=== PATIENT | female | born 2000 ===

== ENCOUNTER 2019-02-12 21:32 | Emergency (ER) | payer SELFPAY ==
[2019-02-12 22:03] VITALS: BP 139/76
--- NOTE | 2019-02-12 22:08 | UC ---
Lower Extremity/Ankle HPI - History of Current Complaint Chief Complaint: UCLowerExtremity Stated Complaint: R FOOT INJURY Hx Obtained From: Patient Hx Last Menstrual Period: 02/08/2019 ?: No Onset/Duration: Sudden Onset, Lasting Hours Severity Initially: Moderate Severity Currently: Moderate Pain Intensity: 6 Aggravating Factor(s): Standing, Ambulation Alleviating Factor(s): Nothing Able to Bear Weight: No - Allergies/Home Medications Allergies/Adverse Reactions: Allergies Allergy/AdvReac Type Severity Reaction Status Date / Time amoxicillin Allergy Hives Verified 02/12/19 22:06 latex Allergy Rash And Verified 02/12/19 22:07 Itching Home Medications: Home Medications Ibuprofen 600 mg PO 02/12/19 [History] PMH/Surg Hx/FS Hx/Imm Hx Previously Healthy: Yes - Surgical History Surgical History: Yes Surgery Procedure, Year, and Place: broken collar bone with plate and screws put in 2016 - Family History Known Family History: Negative: Cardiac Disease, Hypertension - Social History Alcohol Use: None Substance Use Type: None Smoking Status (MU): Never Smoked Tobacco Review of Systems All Other Systems Reviewed And Are Negative: Yes Constitutional: Positive: Negative Skin: Positive: Bruising Eyes: Positive: Negative ENT: Positive: Negative Respiratory: Positive: Negative Cardiovascular: Positive: Negative Gastrointestinal: Positive: Negative Genitourinary: Positive: Negative Motor: Positive: Negative Neurovascular: Positive: Negative Musculoskeletal: Positive: Arthralgia, Decreased ROM, Edema, Myalgia Neurological: Positive: Negative Psychological: Positive: Negative Is Patient Immunocompromised?: No Physical Exam Triage Information Reviewed: Yes Appearance: Well-Appearing, Well-Nourished, Pain Distress Vital Signs: Initial Vital Signs Temp 100.2 F 02/12/19 21:57 Pulse 100 02/12/19 21:57 Resp 16 02/12/19 21:57 BP 139/76 02/12/19 21:57 Pulse Ox 100 02/12/19 21:57 Vital Signs Reviewed: Yes Eye Exam: Normal ENT Exam: Normal Dental Exam: Normal Neck exam: Normal Respiratory Exam: Normal Respiratory: Positive: Chest non-tender, Lungs clear Cardiovascular Exam: Normal Cardiovascular: Positive: RRR, No Murmur, Pulses Normal Abdominal Exam: Normal Abdomen Description: Positive: Nontender, No Organomegaly, Soft Musculoskeletal: Positive: Strength Limited @ - cannot bear weight,, ROM Limited @ - due to pain, la, Edema @ - large amount of edema over the top of the mid foot, bruised, Neurological Exam: Normal Psychological Exam: Normal Skin Exam: Normal Lower Extremity Course/Dx - Course Course Of Treatment: hx obtained, exam performed ,meds reviewed, xray obtained. - Differential Dx/Diagnosis Differential Diagnosis/HQI/PQRI: Contusion, Dislocation, Fracture (Closed), Sprain, Strain Provider Diagnosis: Sprain of foot, left Discharge - Sign-Out/Discharge Documenting (check all that apply): Patient Departure All imaging exams completed and their final reports reviewed: No Studies - Discharge Plan Condition: Stable Disposition: HOME Patient Education Materials: Foot Sprain (ED) Referrals: No Primary Care Phys,NOPCP [Primary Care Provider] - Additional Instructions: 1. there is no apparent fracture on your xray. The radiologist official read will be available tomorrow and we will call with any positive result. 2. Use the tom wrap, post op shoe, and crutches to work back into weight bearing. 3. ice for 24 hours, then warm water soaks, 1-2 times a day 4. Continue with ibuprofen for pain and swelling - Billing Disposition and Condition Condition: STABLE Disposition: Home
== END 2019-02-12 22:42 | disposition home or self-care (01) ==
LOC: UCEAST 21:32
DX: S93.602A Unspecified sprain of left foot, initial encounter (principal); S99.921A Unspecified injury of right foot, initial encounter; Z91.040 Latex allergy status; Z88.0 Allergy status to penicillin; X58.XXXA Exposure to other specified factors, initial encounter; Y92.9 Unspecified place or not applicable
CPT/HCPCS: 99203; G0463